=== PATIENT | female | born 1965 ===

== ENCOUNTER 2018-11-27 19:05 | Emergency (ER) | payer OTHER ==
[2018-11-27 19:34] VITALS: BP 138/89
--- NOTE | 2018-11-27 20:26 | UC ---
Complaint Female HPI - HPI Summary HPI Summary: body aches flushed low grade fever---just not feeling well voiding frequently-- - History Of Current Complaint Chief Complaint: [facility] Stated Complaint: FEVER,POSS UTI Time Seen by Provider: 11/27/18 20:17 Hx Obtained From: Patient ?: No Onset/Duration: Sudden Onset, Lasting Days - 1, Still Present Timing: Constant Pain Intensity: 3 Pain Scale Used: 0-10 Numeric - Allergies/Home Medications Allergies/Adverse Reactions: Allergies Allergy/AdvReac Type Severity Reaction Status Date / Time No Known Allergies Allergy Verified 11/27/18 19:34 PMH/Surg Hx/FS Hx/Imm Hx Previously Healthy: No Endocrine History: Hypothyroidism - Surgical History Surgical History: Yes Surgery Procedure, Year, and Place: c section. tubal ligation. plantar fascitis surgery. elbow adn thumb surgeries -tendonitits. wisom tooth extraction. skin biopsy - Family History Known Family History: Positive: None - Social History Occupation: Employed Full-time Lives: With Family Alcohol Use: Occasionally Substance Use Type: None Smoking Status (MU): Never Smoked Tobacco Review of Systems All Other Systems Reviewed And Are Negative: Yes Constitutional: Positive: Chills Skin: Positive: Negative Eyes: Positive: Negative ENT: Positive: Negative Respiratory: Positive: Negative Cardiovascular: Positive: Negative Gastrointestinal: Positive: Negative Genitourinary: Positive: Dysuria Motor: Positive: Negative Neurovascular: Positive: Negative Musculoskeletal: Positive: Arthralgia, Myalgia Neurological: Positive: Negative Psychological: Positive: Negative Is Patient Immunocompromised?: Yes Physical Exam Triage Information Reviewed: Yes Appearance: Well-Appearing, No Pain Distress, Well-Nourished Vital Signs: Initial Vital Signs Temp 99.7 F 11/27/18 19:29 Pulse 108 11/27/18 19:29 Resp 16 11/27/18 19:29 BP 138/89 11/27/18 19:29 Pulse Ox 100 11/27/18 19:29 Vital Signs Reviewed: Yes Eye Exam: Normal Eyes: Positive: Conjunctiva Clear ENT Exam: Normal ENT: Positive: Normal ENT inspection, Hearing grossly normal, Nasal congestion, TMs normal, Tonsillar swelling, Uvula midline. Negative: Trismus, Muffled voice , Hoarse voice, Dental tenderness, Sinus tenderness Dental Exam: Normal Neck exam: Normal Neck: Positive: Supple, Nontender, No Lymphadenopathy Respiratory Exam: Normal Respiratory: Positive: Chest non-tender, Lungs clear, Normal breath sounds, No respiratory distress, No accessory muscle use Cardiovascular Exam: Normal Cardiovascular: Positive: RRR, No Murmur, Pulses Normal, Brisk Capillary Refill Musculoskeletal Exam: Normal Musculoskeletal: Positive: Strength Intact, ROM Intact, No Edema Neurological Exam: Normal Neurological: Positive: Alert, Muscle Tone Normal Psychological Exam: Normal Skin Exam: Normal Complaint Female Dx - Differential Dx/Diagnosis Provider Diagnosis: Fever due to virus Discharge - Sign-Out/Discharge Documenting (check all that apply): Patient Departure All imaging exams completed and their final reports reviewed: No Studies - Discharge Plan Condition: Stable Disposition: HOME Patient Education Materials: Fever in Adults (ED), Viral Syndrome (ED) Forms: *Work Release Referrals: Mateus Marie MD [Primary Care Provider] - If Needed - Billing Disposition and Condition Condition: STABLE Disposition: Home
[2018-11-27 21:03] LABS: Influenza A Molecular NEGATIVE (Negative); Influenza B Molecular NEGATIVE (Negative)
== END 2018-11-27 21:00 | disposition home or self-care (01) ==
LOC: UCEAST 19:05
DX: R50.9 Fever, unspecified (principal)
CPT/HCPCS: 81003; 99211; G0463